=== PATIENT | female | born 1990 | race Caucasian/White ===

== ENCOUNTER 2016-06-30 03:45 | Emergency (ER) | payer MEDICARE, MEDICAID ==
[~2016-06-30] VITALS: Ht 172.7 cm; Wt 110.0 kg
[~2016-06-30 03:45] MED LIST: ANTIBIOTIC; BP MED; CARB200T4 PO; CEPH-376 PO; CLIN300C93 PO; CYCL-259 PO; DIVA125T2 PO; HYDR-3138 PO; HYDR-3240 PO; LEVE100020 PO; LEVE500T53 PO; LITH150C PO; LITH450T; LORA1TAB PO; LORA2TAB99 PO; LURA20TA PO; LURA40TA PO; MECL-76 PO; NAPR550T3 PO; ONDA4TAB13 SL; ONDA4TAB7 PO; PRENATALS; PROM25TA10 PO; QUET25TA5 PO; QUET300T6; RANI150T8; TRAM50TA2 PO
[2016-06-30] MEDS ORDERED: KETOROLAC 30 MG/1 ML IM ONE (05:00)
[2016-06-30] MEDS ORDERED: KETOROLAC 30 MG/1 ML ONE (05:01)
[2016-06-30 05:55] VITALS: BP 121/74
== END 2016-06-30 05:57 | disposition home or self-care (01) ==
LOC: ED 04:23
DX: S16.1XXA Strain of muscle, fascia and tendon at neck level, initial encounter (principal); J04.0 Acute laryngitis; B97.89 Other viral agents as the cause of diseases classified elsewhere; J45.909 Unspecified asthma, uncomplicated; X58.XXXA Exposure to other specified factors, initial encounter; Y93.89 Activity, other specified; Y92.89 Other specified places as the place of occurrence of the external cause; Y99.9 Unspecified external cause status
CPT/HCPCS: 96372; 99283; J1885

== ENCOUNTER 2016-07-15 17:35 | Emergency (ER) | payer MEDICARE, MEDICAID ==
[~2016-07-15] VITALS: Ht 172.7 cm; Wt 112.0 kg
[2016-07-15] MEDS ORDERED: SODIUM CHLORIDE 0.9% 1,000 ML IV ONE (17:43)
[2016-07-15] MEDS ORDERED: SODIUM CHLORIDE 0.9% 1,000ML IVBOLUS ONE (18:00)
[2016-07-15] MEDS ORDERED: LORazepam 1MG TABLET PO ONE (18:00)
[2016-07-15] MEDS ORDERED: LEVE100020 PO (18:01)
[2016-07-15] MEDS ORDERED: LORazepam 1MG TABLET ONE (18:03)
[2016-07-15 18:06] VITALS: BP 118/66
[2016-07-15 18:34] LABS: BLOOD UREA NITROGEN 12 mg/dL (7-18)
== END 2016-07-15 19:27 | disposition home or self-care (01) ==
LOC: ED 18:17
DX: G40.319 Generalized idiopathic epilepsy and epileptic syndromes, intractable, without status epilepticus (principal)
CPT/HCPCS: 36415; 80048; 80156; 82040; 82542; 85025; 96360; 96361; 99285; J7030

== ENCOUNTER 2016-09-07 12:03 | Emergency (ER) | payer MEDICARE, MEDICAID ==
[~2016-09-07] VITALS: Ht 172.7 cm; Wt 110.3 kg
[~2016-09-07 12:03] MED LIST changes: -NAPR550T3 PO; +NAPR550T30 PO
[2016-09-07 12:11] VITALS: BP 128/78
[2016-09-07 13:13] LABS: BLOOD UREA NITROGEN 10 mg/dL (7-18)
[2016-09-07] MEDS ORDERED: IBUPROFEN 200 MG TABLET PO ONE (14:00)
[2016-09-07 14:34] LABS: HCG UR OBC PASS
[2016-09-07] MEDS ORDERED: IBUPROFEN 200 MG TABLET ONE (14:40)
== END 2016-09-07 15:18 | disposition home or self-care (01) ==
LOC: ED 13:12
DX: M54.5 Low back pain (principal); M54.2 Cervicalgia; R11.0 Nausea; J45.909 Unspecified asthma, uncomplicated
CPT/HCPCS: 36415; 72050; 72072; 72110; 80048; 81001; 81025; 85025; 87086; 99285

== ENCOUNTER 2016-10-12 23:01 | Emergency (ER) | payer MEDICARE, MEDICAID ==
[~2016-10-12] VITALS: Ht 172.7 cm; Wt 111.9 kg
[~2016-10-12 23:01] MED LIST changes: +CLIN300C8 PO; -CLIN300C93 PO; -HYDR-3138 PO; +HYDR-3237 PO; +NAPR-850 PO; -NAPR550T30 PO
[2016-10-12 23:02] VITALS: BP 136/89
== END 2016-10-12 23:57 | disposition home or self-care (01) ==
LOC: ED 23:30
DX: L02.211 Cutaneous abscess of abdominal wall (principal); L73.9 Follicular disorder, unspecified
CPT/HCPCS: 99283

== ENCOUNTER 2016-11-05 20:46 | Emergency (ER) | payer MEDICARE, MEDICAID ==
[~2016-11-05] VITALS: Ht 172.7 cm; Wt 112.6 kg
[2016-11-05 21:02] VITALS: BP 146/84
== END 2016-11-05 22:27 | disposition home or self-care (01) ==
LOC: ED 22:15
DX: S63.501A Unspecified sprain of right wrist, initial encounter (principal); S46.911A Strain of unspecified muscle, fascia and tendon at shoulder and upper arm level, right arm, initial encounter; J45.909 Unspecified asthma, uncomplicated; G43.909 Migraine, unspecified, not intractable, without status migrainosus; F90.9 Attention-deficit hyperactivity disorder, unspecified type; X58.XXXA Exposure to other specified factors, initial encounter; Y93.54 Activity, bowling; Y92.89 Other specified places as the place of occurrence of the external cause; Y99.8 Other external cause status
CPT/HCPCS: 99284

== ENCOUNTER 2016-11-10 05:00 | Emergency (ER) | payer MEDICAID, MEDICARE ==
[2016-11-10 05:03] VITALS: BP 113/82
== END 2016-11-10 06:24 | disposition home or self-care (01) ==
LOC: ED 06:21
DX: J04.0 Acute laryngitis (principal); F31.9 Bipolar disorder, unspecified; F42.9 Obsessive-compulsive disorder, unspecified; F79 Unspecified intellectual disabilities; F90.9 Attention-deficit hyperactivity disorder, unspecified type; G40.909 Epilepsy, unspecified, not intractable, without status epilepticus; J45.909 Unspecified asthma, uncomplicated
CPT/HCPCS: 99281

== ENCOUNTER 2017-03-09 08:32 | Emergency (ER) | payer MEDICARE, MEDICAID ==
[~2017-03-09] VITALS: Ht 172.7 cm; Wt 113.8 kg
[2017-03-09 09:39] LABS: HCG UR SG 1.027 (1.003-1.030); MICROSCOPIC AUTO
[2017-03-09 09:41] LABS: CULTURE INDICATED? YES
[2017-03-09 09:51] LABS: BASOPHILS # (AUTO) 0.05 x10^3/uL (0-0.1); BASOPHILS % (AUTO) 1 % (0-1); EOSINOPHILS % (AUTO) 0 % (1-7); LYMPHOCYTES % (AUTO) 15 % (22-44); MD NO; MEAN CORPUSCULAR HEMOGLOBIN 27.4 pg (27.0-34.8); MEAN CORPUSCULAR HGB CONC 33.6 g/dL (32.4-35.8); MEAN CORPUSCULAR VOLUME 81.7 fL (80-100); MEAN PLATELET VOLUME 9.1 fL (7.4-10.4); MONOCYTES # (AUTO) 0.66 x10^3/uL (0.2-0.8); MONOCYTES % (AUTO) 6 % (2-9); NEUTROPHILS # (AUTO) 8.65 x10^3/uL (1.8-6.8); NEUTROPHILS % (AUTO) 78 % (42-75); PLATELET COUNT 240 x10^3/uL (130-400); RED CELL DISTRIBUTION WIDTH 14.6 % (9.6-15.2)
[2017-03-09 10:03] LABS: ALBUMIN 3.8 g/dL (3.4-5.0); ANION GAP 5 mmol/L (5-15); CALCIUM 8.5 mg/dL (8.5-10.1); CHLORIDE 104 mmol/L (98-107)
[2017-03-09 10:26] VITALS: BP 132/78
== END 2017-03-09 10:36 | disposition home or self-care (01) ==
LOC: ED 10:20
DX: N30.00 Acute cystitis without hematuria (principal); G40.909 Epilepsy, unspecified, not intractable, without status epilepticus; F17.210 Nicotine dependence, cigarettes, uncomplicated
CPT/HCPCS: 36415; 76830; 80048; 81001; 81025; 82040; 85025; 87086; 99285

== ENCOUNTER 2017-04-06 16:54 | Emergency (ER) | payer MEDICARE, MEDICAID ==
[~2017-04-06] VITALS: Ht 172.7 cm; Wt 114.7 kg
[2017-04-06 17:11] VITALS: BP 131/84
[2017-04-06] MEDS ORDERED: SODIUM CHLORIDE 0.9% 1,000ML IVBOLUS ONE (17:30)
[2017-04-06] MEDS ORDERED: SODIUM CHLORIDE FLUSH 10ML SYR IVF ONE (17:30)
[2017-04-06 18:01] LABS: BASOPHILS # (AUTO) 0.01 x10^3/uL (0-0.1); BASOPHILS % (AUTO) 0 % (0-1); EOSINOPHILS % (AUTO) 0 % (1-7); LYMPHOCYTES # (AUTO) 0.79 x10^3/uL (1-3.4); LYMPHOCYTES % (AUTO) 7 % (22-44); MD NO; MEAN CORPUSCULAR HEMOGLOBIN 27.1 pg (27.0-34.8); MEAN CORPUSCULAR HGB CONC 33.4 g/dL (32.4-35.8); MEAN PLATELET VOLUME 9.2 fL (7.4-10.4); MONOCYTES # (AUTO) 0.39 x10^3/uL (0.2-0.8); MONOCYTES % (AUTO) 3 % (2-9); NEUTROPHILS # (AUTO) 10.77 x10^3/uL (1.8-6.8); NEUTROPHILS % (AUTO) 90 % (42-75); PLATELET COUNT 288 x10^3/uL (130-400); RED BLOOD COUNT 5.15 x10^6/uL (3.82-5.3); RED CELL DISTRIBUTION WIDTH 15.1 % (9.6-15.2)
[2017-04-06 18:05] LABS: ALBUMIN 3.8 g/dL (3.4-5.0); ANION GAP 8 mmol/L (5-15); CALCIUM 8.5 mg/dL (8.5-10.1); CHLORIDE 107 mmol/L (98-107); CREATININE 0.84 mg/dL (0.55-1.02)
== END 2017-04-06 21:13 | disposition left against medical advice (07) ==
LOC: ED 18:00
DX: R50.9 Fever, unspecified (principal); R42 Dizziness and giddiness; R11.0 Nausea
CPT/HCPCS: 36415; 80048; 82040; 85025; 99284

== ENCOUNTER 2017-08-08 18:33 | Emergency (ER) | payer MEDICARE, MEDICAID ==
[~2017-08-08] VITALS: Ht 172.7 cm; Wt 120.1 kg
[~2017-08-08 18:33] MED LIST changes: +RANI150T23; -RANI150T8
[2017-08-08] MEDS ORDERED: DICYCLOMINE 10 MG/ML, 2ML IM ONE (19:30)
[2017-08-08] MEDS ORDERED: PROMETHAZINE 25 MG/ML, 1ML IM ONE (19:30)
[2017-08-08 19:37] LABS: BASOPHILS # (AUTO) 0.07 x10^3/uL (0-0.1); BASOPHILS % (AUTO) 1 % (0-1); EOSINOPHILS # (AUTO) 0.01 x10^3/uL (0-0.4); EOSINOPHILS % (AUTO) 0 % (1-7); LYMPHOCYTES # (AUTO) 2.16 x10^3/uL (1-3.4); LYMPHOCYTES % (AUTO) 22 % (22-44); MD NO; MEAN CORPUSCULAR HEMOGLOBIN 28.1 pg (27.0-34.8); MEAN CORPUSCULAR HGB CONC 33.9 g/dL (32.4-35.8); MONOCYTES # (AUTO) 0.97 x10^3/uL (0.2-0.8); MONOCYTES % (AUTO) 10 % (2-9); NEUTROPHILS # (AUTO) 6.77 x10^3/uL (1.8-6.8); NEUTROPHILS % (AUTO) 68 % (42-75); PLATELET COUNT 230 x10^3/uL (130-400); RED BLOOD COUNT 4.45 x10^6/uL (3.82-5.3); RED CELL DISTRIBUTION WIDTH 15.9 % (9.6-15.2)
[2017-08-08 19:44] LABS: ALANINE AMINOTRANSFERASE 29 U/L (12-78); ALBUMIN 3.5 g/dL (3.4-5.0); ANION GAP 4 mmol/L (5-15); CALCIUM 8.5 mg/dL (8.5-10.1); CHLORIDE 104 mmol/L (98-107); CREATININE 0.79 mg/dL (0.55-1.02)
[2017-08-08 19:49] LABS: ALKALINE PHOSPHATASE 77 U/L (45-117); BILIRUBIN,TOTAL 0.2 mg/dL (0.2-1.0)
[2017-08-08 20:10] LABS: MICROSCOPIC NOT IND
[2017-08-08 20:15] LABS: CULTURE INDICATED? NO
[2017-08-08] MEDS ORDERED: PROMETHAZINE 25 MG/ML, 1ML ONE (20:54)
[2017-08-08] MEDS ORDERED: DICYCLOMINE 10 MG/ML, 2ML ONE (20:54)
[2017-08-08 21:17] VITALS: BP 117/69
== END 2017-08-08 21:38 | disposition home or self-care (01) ==
LOC: ED 21:32
DX: R11.2 Nausea with vomiting, unspecified (principal); R10.84 Generalized abdominal pain; J45.909 Unspecified asthma, uncomplicated
CPT/HCPCS: 36415; 80053; 81003; 83690; 84703; 85025; 96372; 99284; J0500; J2550

== ENCOUNTER 2017-08-21 00:54 | Emergency (ER) | payer MEDICARE, MEDICAID ==
[~2017-08-21] VITALS: Ht 172.7 cm; Wt 120.0 kg
[2017-08-21] MEDS ORDERED: KETOROLAC 30 MG/1 ML IM ONE (02:30)
[2017-08-21 02:41] LABS: BASOPHILS # (AUTO) 0.08 x10^3/uL (0-0.1); BASOPHILS % (AUTO) 1 % (0-1); EOSINOPHILS % (AUTO) 0 % (1-7); LYMPHOCYTES # (AUTO) 2.85 x10^3/uL (1-3.4); LYMPHOCYTES % (AUTO) 34 % (22-44); MD NO; MEAN CORPUSCULAR HEMOGLOBIN 27.4 pg (27.0-34.8); MEAN CORPUSCULAR VOLUME 82.9 fL (80-100); MEAN PLATELET VOLUME 8.4 fL (7.4-10.4); MONOCYTES % (AUTO) 10 % (2-9); NEUTROPHILS # (AUTO) 4.59 x10^3/uL (1.8-6.8); NEUTROPHILS % (AUTO) 55 % (42-75); PLATELET COUNT 226 x10^3/uL (130-400); RED BLOOD COUNT 4.43 x10^6/uL (3.82-5.3); RED CELL DISTRIBUTION WIDTH 15.9 % (9.6-15.2)
[2017-08-21 02:54] LABS: ALBUMIN 3.4 g/dL (3.4-5.0); ANION GAP 6 mmol/L (5-15); CALCIUM 8.4 mg/dL (8.5-10.1); CHLORIDE 106 mmol/L (98-107); CREATININE 0.84 mg/dL (0.55-1.02)
[2017-08-21 02:58] LABS: TROPONIN I < 0.015 ng/mL (0.000-0.045)
[2017-08-21] MEDS ORDERED: KETOROLAC 30 MG/1 ML ONE (03:19)
[2017-08-21 03:42] VITALS: BP 133/63
== END 2017-08-21 03:45 | disposition home or self-care (01) ==
LOC: ED 03:39
DX: R07.89 Other chest pain (principal); F31.9 Bipolar disorder, unspecified; J45.909 Unspecified asthma, uncomplicated; I10 Essential (primary) hypertension; F90.9 Attention-deficit hyperactivity disorder, unspecified type
CPT/HCPCS: 36415; 71045; 80048; 82040; 84484; 85025; 85379; 93005; 96372; 99285; J1885

== ENCOUNTER 2017-08-22 00:09 | Emergency (ER) | payer MEDICARE, MEDICAID ==
[~2017-08-22] VITALS: Ht 172.7 cm; Wt 120.0 kg
[2017-08-22 00:13] VITALS: BP 160/93
== END 2017-08-22 00:28 | disposition home or self-care (01) ==
LOC: ED 00:20
DX: I10 Essential (primary) hypertension (principal); F90.9 Attention-deficit hyperactivity disorder, unspecified type; G40.909 Epilepsy, unspecified, not intractable, without status epilepticus; F31.9 Bipolar disorder, unspecified; Z76.0 Encounter for issue of repeat prescription
CPT/HCPCS: 99283

== ENCOUNTER 2017-09-15 18:13 | Emergency (ER) | payer MEDICARE, MEDICAID ==
[~2017-09-15] VITALS: Ht 172.7 cm; Wt 121.5 kg
[2017-09-15 18:22] VITALS: BP 121/72
== END 2017-09-15 18:55 | disposition home or self-care (01) ==
LOC: ED 18:47
DX: B34.9 Viral infection, unspecified (principal); G40.909 Epilepsy, unspecified, not intractable, without status epilepticus; I10 Essential (primary) hypertension; J45.909 Unspecified asthma, uncomplicated
CPT/HCPCS: 93005; 99283

== ENCOUNTER 2017-12-02 14:30 | Emergency (ER) | payer MEDICARE, MEDICAID ==
[~2017-12-02] VITALS: Ht 167.6 cm; Wt 126.0 kg
[2017-12-02 14:36] VITALS: BP 127/87
[2017-12-02] MEDS ORDERED: DIPH,PERTUSS(ACELL),TET VAC/PF 0.5 ML IM-VACC ONE ×2 (15:00→16:21)
[2017-12-02] MEDS ORDERED: BACITRACIN ZINC OINT 500U/GM, 0.9 GM ONE (15:19)
[2017-12-02] MEDS ORDERED: ARIP400S3 IM (16:18)
[2017-12-02] MEDS ORDERED: BUPR100T7 PO (16:18)
== END 2017-12-02 16:30 | disposition home or self-care (01) ==
LOC: ED 16:00
DX: S61.204A Unspecified open wound of right ring finger without damage to nail, initial encounter (principal); F31.9 Bipolar disorder, unspecified; G40.909 Epilepsy, unspecified, not intractable, without status epilepticus; Z90.89 Acquired absence of other organs; Z88.2 Allergy status to sulfonamides; W21.31XA Struck by shoe cleats, initial encounter; Y92.322 Soccer field as the place of occurrence of the external cause; Y93.89 Activity, other specified; Y99.8 Other external cause status
CPT/HCPCS: 90471; 90715; 99284

== ENCOUNTER 2017-12-15 13:34 | Emergency (ER) | payer MEDICARE, MEDICAID ==
[~2017-12-15] VITALS: Ht 172.7 cm; Wt 122.8 kg
[~2017-12-15 13:34] MED LIST changes: +ARIP400S3 IM; +BUPR100T7 PO
[2017-12-15 13:52] VITALS: BP 129/78
[2017-12-15] MEDS ORDERED: LURA20TA PO (14:16)
[2017-12-15] MEDS ORDERED: IBUPROFEN 200 MG TABLET PO ONE (14:30)
[2017-12-15] MEDS ORDERED: IBUPROFEN 200 MG TABLET ONE (14:46)
== END 2017-12-15 15:38 | disposition home or self-care (01) ==
LOC: ED 15:30
DX: S39.012A Strain of muscle, fascia and tendon of lower back, initial encounter (principal); S70.12XA Contusion of left thigh, initial encounter; S80.02XA Contusion of left knee, initial encounter; X58.XXXA Exposure to other specified factors, initial encounter; Y93.89 Activity, other specified; Y99.8 Other external cause status; Y92.410 Unspecified street and highway as the place of occurrence of the external cause
CPT/HCPCS: 72110; 99284

== ENCOUNTER 2018-03-16 12:08 | Emergency (ER) | payer MEDICARE, MEDICAID ==
[~2018-03-16] VITALS: Ht 172.7 cm; Wt 125.0 kg
--- NOTE | 2018-03-16 12:43 | NUR ---
Pt to rm 16 from [facility]
--- NOTE | 2018-03-16 13:10 | NUR ---
assumede care of pt. lab at bedside to draw. pt advised that urine sample needed. pt will attempt to give urine sample
[2018-03-16 13:22] LABS: BASOPHILS # (AUTO) 0.02 x10^3/uL (0-0.1); BASOPHILS % (AUTO) 0 % (0-1); EOSINOPHILS % (AUTO) 0 % (1-7); LYMPHOCYTES # (AUTO) 1.85 x10^3/uL (1-3.4); LYMPHOCYTES % (AUTO) 18 % (22-44); MD NO; MEAN CORPUSCULAR HEMOGLOBIN 27.7 pg (27.0-34.8); MEAN CORPUSCULAR HGB CONC 33.2 g/dL (32.4-35.8); MEAN CORPUSCULAR VOLUME 83.4 fL (80-100); MEAN PLATELET VOLUME 8.9 fL (7.4-10.4); MONOCYTES % (AUTO) 8 % (2-9); NEUTROPHILS # (AUTO) 7.65 x10^3/uL (1.8-6.8); NEUTROPHILS % (AUTO) 74 % (42-75); PLATELET COUNT 251 x10^3/uL (130-400); RED BLOOD COUNT 4.76 x10^6/uL (3.82-5.3); RED CELL DISTRIBUTION WIDTH 15.2 % (9.6-15.2)
[2018-03-16] MEDS ORDERED: HYDROcodone/APAP 5/325 TABLET PO ONE (13:30)
[2018-03-16] MEDS ORDERED: ONDANSETRON ODT 4 MG PO ONE (13:30)
[2018-03-16 13:33] LABS: ALBUMIN 3.6 g/dL (3.4-5.0); ANION GAP 5 mmol/L (5-15); CALCIUM 8.9 mg/dL (8.5-10.1); CHLORIDE 106 mmol/L (98-107); CREATININE 0.82 mg/dL (0.55-1.02)
--- NOTE | 2018-03-16 13:50 | NUR ---
urine sample collected and sent. pt c/o low abd pain x2 days that feels like a burning and has painful urination as well. pt denies hematuria, no bowel c/o. denies urinary frequency or urgency. pt sitting up on [employer] calmly playing [employer] game on cell phone. pt to recieve pain meds. pt advised not to drive after meds, pt verbalized understanding
[2018-03-16] MEDS ORDERED: HYDROcodone/APAP 5/325 TABLET ONE (13:56)
--- NOTE | 2018-03-16 14:05 | NUR ---
pt medicated per order. pt declines zofra at this time. updated on POC. resting in position of comfort playing game on cell phone, friends at bedside
[2018-03-16 14:12] VITALS: BP 107/70
[2018-03-16 14:23] LABS: CULTURE INDICATED? YES; MICROSCOPIC INDICATED
--- NOTE | 2018-03-16 15:05 | NUR ---
TASK RN: DC EDUCATION PROVIDED, PT DEMONSTRATES UNDERSTANDING. PT AMBULATED STEADILY TO DC WITH RN AND FAMILY
--- NOTE | 2018-03-16 15:17 | NUR ---
this pt was D/C by another RN
== END 2018-03-16 15:07 | disposition home or self-care (01) ==
LOC: ED 13:59
DX: R10.30 Lower abdominal pain, unspecified (principal); R30.0 Dysuria; N30.00 Acute cystitis without hematuria; I10 Essential (primary) hypertension; F31.9 Bipolar disorder, unspecified; G89.29 Other chronic pain; G40.909 Epilepsy, unspecified, not intractable, without status epilepticus; J45.909 Unspecified asthma, uncomplicated
CPT/HCPCS: 36415; 80048; 81001; 82040; 84703; 85025; 87077; 87086; 87186; 99283

== ENCOUNTER 2018-12-31 13:13 | Emergency (ER) | payer MEDICARE, MEDICAID ==
[~2018-12-31] VITALS: Ht 172.7 cm; Wt 123.7 kg
[~2018-12-31 13:13] MED LIST changes: -QUET300T6; +QUET300T7; +RANI-467; -RANI150T23
--- NOTE | 2018-12-31 13:36 | NUR ---
THIS IS A 28Y F THAT COMES IN FROM HOME WITH INTERMITTENT CP, PAIN WORSENS WITH DEEP BREATHING. PT STATES " MY RIGHT LUNG HURTS WHEN I TAKE A DEEP BREATH IT FEELS KIND OF LIKE I'M BEING STABBED." PT DENIES RECENT TRAUMA OR ILLNESS. PT REPORTS HX ANXIETY BUT STATES IT IS MANAGED WELL WITH MEDICATION. PT CONNECTED TO ALL MONITORING CALL LIGHT WITHIN REACH. AT BEDSIDE
--- NOTE | 2018-12-31 13:37 | NUR ---
PT STATES SHE FEELS LIKE THE ROOM IS SPINNING AND SHE IS DIZZY WHEN SHE WALKS. UPDATED. AWAITING FURTHER ORDERS
[2018-12-31] MEDS ORDERED: KETOROLAC 30 MG/1 ML ONE (13:50)
[2018-12-31 14:00] LABS: BASOPHILS # (AUTO) 0.09 x10^3/uL (0-0.1); BASOPHILS % (AUTO) 1 % (0-1); EOSINOPHILS # (AUTO) 0.08 x10^3/uL (0-0.4); EOSINOPHILS % (AUTO) 1 % (1-7); LYMPHOCYTES # (AUTO) 2.37 x10^3/uL (1-3.4); LYMPHOCYTES % (AUTO) 23 % (22-44); MD NO; MEAN CORPUSCULAR HEMOGLOBIN 27.9 pg (27.0-34.8); MEAN CORPUSCULAR HGB CONC 32.7 g/dL (32.4-35.8); MEAN CORPUSCULAR VOLUME 85.5 fL (80-100); MEAN PLATELET VOLUME 8.9 fL (7.4-10.4); MONOCYTES # (AUTO) 0.87 x10^3/uL (0.2-0.8); MONOCYTES % (AUTO) 8 % (2-9); NEUTROPHILS # (AUTO) 6.97 x10^3/uL (1.8-6.8); NEUTROPHILS % (AUTO) 67 % (42-75); PLATELET COUNT 280 x10^3/uL (130-400); RED CELL DISTRIBUTION WIDTH 14.6 % (9.6-15.2)
[2018-12-31] MEDS ORDERED: KETOROLAC 30 MG/1 ML IM ONE (14:00)
[2018-12-31 14:11] LABS: ALBUMIN 3.8 g/dL (3.4-5.0); ANION GAP 4 mmol/L (5-15); CALCIUM 9.2 mg/dL (8.5-10.1); CHLORIDE 107 mmol/L (98-107); CREATININE 0.85 mg/dL (0.55-1.02)
[2018-12-31] MEDS ORDERED: MECLIZINE HCL 25 MG TABLET PO ONE (14:30)
--- NOTE | 2018-12-31 14:30 | NUR ---
PT UP TO RESTROOM NO ASSISTANCE REQUIRED, STEADY GAIT
[2018-12-31] MEDS ORDERED: MECLIZINE CHEWABLE 25 MG TAB ONE (14:32)
--- NOTE | 2018-12-31 14:53 | NUR ---
ALL RESULTS BACK AT THIS TIME. CHART UP FOR RECHECK.
--- NOTE | 2018-12-31 15:19 | NUR ---
MD TO BEDSIDE TO UPDATE PT ON POC. PT TO BE DCd HOME
[2018-12-31 15:36] VITALS: BP 117/61
== END 2018-12-31 15:39 | disposition home or self-care (01) ==
LOC: ED 14:15
DX: H81.12 Benign paroxysmal vertigo, left ear (principal); J00 Acute nasopharyngitis [common cold]; R09.1 Pleurisy; I10 Essential (primary) hypertension; G40.89 Other seizures; F31.9 Bipolar disorder, unspecified; F79 Unspecified intellectual disabilities; E28.2 Polycystic ovarian syndrome; F90.9 Attention-deficit hyperactivity disorder, unspecified type; Z90.89 Acquired absence of other organs
CPT/HCPCS: 36415; 71045; 80048; 82040; 85025; 85379; 93005; 96372; 99284; J1885

== ENCOUNTER 2019-01-24 09:26 | Emergency (ER) | payer MEDICARE, MEDICAID ==
[~2019-01-24] VITALS: Ht 172.7 cm; Wt 121.3 kg
[2019-01-24] MEDS ORDERED: HYDROcodone/APAP 5/325 TABLET PO ONE (10:00)
[2019-01-24] MEDS ORDERED: PHENAZOPYRIDINE 200 MG TABLET PO ONE (10:00)
[2019-01-24] MEDS ORDERED: ONDANSETRON ODT 4 MG PO ONE (10:00)
[2019-01-24] MEDS ORDERED: PHENAZOPYRIDINE 200 MG TABLET ONE (10:02)
[2019-01-24] MEDS ORDERED: ONDANSETRON ODT 4 MG ONE (10:02)
[2019-01-24] MEDS ORDERED: HYDROcodone/APAP 5/325 TABLET ONE (10:03)
[2019-01-24 10:19] LABS: MICROSCOPIC INDICATED
[2019-01-24 10:24] LABS: BASOPHILS # (AUTO) 0.18 x10^3/uL (0-0.1); BASOPHILS % (AUTO) 2 % (0-1); EOSINOPHILS # (AUTO) 0.03 x10^3/uL (0-0.4); EOSINOPHILS % (AUTO) 0 % (1-7); LYMPHOCYTES # (AUTO) 2.03 x10^3/uL (1-3.4); LYMPHOCYTES % (AUTO) 24 % (22-44); MD NO; MEAN CORPUSCULAR HEMOGLOBIN 27.8 pg (27.0-34.8); MEAN CORPUSCULAR HGB CONC 32.6 g/dL (32.4-35.8); MEAN CORPUSCULAR VOLUME 85.4 fL (80-100); MONOCYTES # (AUTO) 0.75 x10^3/uL (0.2-0.8); MONOCYTES % (AUTO) 9 % (2-9); NEUTROPHILS # (AUTO) 5.64 x10^3/uL (1.8-6.8); NEUTROPHILS % (AUTO) 65 % (42-75); PLATELET COUNT 255 x10^3/uL (130-400); RED BLOOD COUNT 4.64 x10^6/uL (3.82-5.3); RED CELL DISTRIBUTION WIDTH 15.1 % (9.6-15.2)
[2019-01-24 10:35] LABS: ALBUMIN 3.6 g/dL (3.4-5.0); ANION GAP 4 mmol/L (5-15); CALCIUM 8.9 mg/dL (8.5-10.1); CHLORIDE 108 mmol/L (98-107); CREATININE 0.89 mg/dL (0.55-1.02)
[2019-01-24 10:50] LABS: CULTURE INDICATED? YES
[2019-01-24 11:09] VITALS: BP 115/73
--- NOTE | 2019-01-24 11:10 | NUR ---
TALKING WITH PT ABOUT LAB RESULTS AND POC
[2019-01-24] MEDS ORDERED: CEFTRIAXONE 1,000 MG ONE (11:18)
[2019-01-24] MEDS ORDERED: LIDOCAINE-MPF 1%, 2ML ONE (11:18)
[2019-01-24] MEDS ORDERED: CEFTRIAXONE 1,000 MG IM ONE (11:30)
== END 2019-01-24 11:44 | disposition home or self-care (01) ==
LOC: ED 09:51
DX: N30.00 Acute cystitis without hematuria (principal)
CPT/HCPCS: 36415; 80048; 81001; 82040; 84703; 85025; 87086; 96372; 99284; J0696; Q0162

== ENCOUNTER 2019-01-26 10:22 | Emergency (ER) | payer MEDICARE, MEDICAID ==
[~2019-01-26] VITALS: Ht 172.7 cm; Wt 122.0 kg
--- NOTE | 2019-01-26 11:11 | NUR ---
oral temp rechecked :98.3f patient up to restroom to provide clean catch urine sample
[2019-01-26] MEDS ORDERED: LEVE500T8 PO (11:45)
[2019-01-26] MEDS ORDERED: CEFD300C37 PO (11:45)
[2019-01-26 12:24] VITALS: BP 111/67
--- NOTE | 2019-01-26 12:24 | NUR ---
BREAK RN NOTE: Pt sitting up in bed using cell phone. NAD noted at this time. Friend at bedside. VSS. Side rail up. Call light in reach. Awaiting UA results.
[2019-01-26 12:32] LABS: MICROSCOPIC INDICATED
[2019-01-26 12:59] LABS: CULTURE INDICATED? YES
== END 2019-01-26 12:56 | disposition home or self-care (01) ==
LOC: ED 12:55
DX: N30.00 Acute cystitis without hematuria (principal); I10 Essential (primary) hypertension; J45.909 Unspecified asthma, uncomplicated; Z90.89 Acquired absence of other organs
CPT/HCPCS: 81001; 87086; 99283

== ENCOUNTER 2019-01-28 17:54 | Emergency (ER) | payer MEDICAID, MEDICARE, OTHER ==
[~2019-01-28] VITALS: Ht 172.7 cm; Wt 122.6 kg
[~2019-01-28 17:54] MED LIST changes: +CEFD300C37 PO; +LEVE500T8 PO
--- NOTE | 2019-01-28 18:07 | NUR ---
NO ANSWER X 1 TO TRIAGE.
--- NOTE | 2019-01-28 18:10 | NUR ---
NO ANSWER TO TRIAGE X 2.
[2019-01-28 18:21] VITALS: BP 109/71
[2019-01-28] MEDS ORDERED: IBUPROFEN 800 MG TABLET PO STA (19:42)
[2019-01-28] MEDS ORDERED: IBUPROFEN 200 MG TABLET ONE (19:53)
== END 2019-01-28 20:00 | disposition home or self-care (01) ==
LOC: ED 19:54
DX: S90.32XA Contusion of left foot, initial encounter (principal); W20.8XXA Other cause of strike by thrown, projected or falling object, initial encounter; Y93.89 Activity, other specified; Y92.69 Other specified industrial and construction area as the place of occurrence of the external cause; Y99.8 Other external cause status
CPT/HCPCS: 99283

== ENCOUNTER 2019-02-02 12:02 | Emergency (ER) | payer MEDICARE, MEDICAID ==
[~2019-02-02] VITALS: Ht 172.7 cm; Wt 122.9 kg
[2019-02-02 12:43] VITALS: BP 127/64
[2019-02-02 13:22] LABS: BASOPHILS # (AUTO) 0.11 x10^3/uL (0-0.1); BASOPHILS % (AUTO) 1 % (0-1); EOSINOPHILS # (AUTO) 0.12 x10^3/uL (0-0.4); EOSINOPHILS % (AUTO) 1 % (1-7); LYMPHOCYTES # (AUTO) 2.33 x10^3/uL (1-3.4); LYMPHOCYTES % (AUTO) 23 % (22-44); MD NO; MEAN CORPUSCULAR HEMOGLOBIN 27.9 pg (27.0-34.8); MEAN CORPUSCULAR HGB CONC 32.9 g/dL (32.4-35.8); MEAN CORPUSCULAR VOLUME 84.8 fL (80-100); MEAN PLATELET VOLUME 9.2 fL (7.4-10.4); MONOCYTES # (AUTO) 0.72 x10^3/uL (0.2-0.8); MONOCYTES % (AUTO) 7 % (2-9); NEUTROPHILS # (AUTO) 6.96 x10^3/uL (1.8-6.8); NEUTROPHILS % (AUTO) 68 % (42-75); PLATELET COUNT 272 x10^3/uL (130-400); RED BLOOD COUNT 4.82 x10^6/uL (3.82-5.3); RED CELL DISTRIBUTION WIDTH 15.2 % (9.6-15.2)
--- NOTE | 2019-02-02 13:23 | NUR ---
Pt to rm 11 from [facility]
[2019-02-02 13:32] LABS: ALBUMIN 3.8 g/dL (3.4-5.0); ANION GAP 5 mmol/L (5-15); CALCIUM 8.9 mg/dL (8.5-10.1); CHLORIDE 106 mmol/L (98-107)
[2019-02-02 13:38] LABS: CREATININE 1.03 mg/dL (0.55-1.02)
--- NOTE | 2019-02-02 13:46 | NUR ---
Pt c/o diarrhea with blood for 1 week with 10/10 generalized abdominal pain. Pt sitting on gurney connected to NIBP cuff and continous pulse ox monitor. Pt denies recent antibiotic use within last two months. Pt denies pain with urination, burning, or flank pain. Pt denies n/v. NADN. Spouse at bedside. Bedside commode in room and UA cup provided with clean catch urine sample instructions provided. Pt stated verbal understanding of clean catch. Call light within reach. No needs expressed.
--- NOTE | 2019-02-02 13:51 | NUR ---
Pt aware of need of UA and states, "I geraldo ltry in 10 to 15 minutes." Pt refused straight cath.
--- NOTE | 2019-02-02 15:16 | NUR ---
Pt left ED room prior to getting d/c paperwork or education. Pt left with all personal belongings.
== END 2019-02-02 15:19 | disposition home or self-care (01) ==
LOC: ED 15:10
DX: R19.7 Diarrhea, unspecified (principal); R10.33 Periumbilical pain; I10 Essential (primary) hypertension; G43.909 Migraine, unspecified, not intractable, without status migrainosus
CPT/HCPCS: 36415; 74021; 80048; 82040; 84703; 85025; 99284

== ENCOUNTER 2019-02-12 13:27 | Emergency (ER) | payer MEDICARE, MEDICAID ==
[~2019-02-12] VITALS: Ht 172.7 cm; Wt 124.0 kg
[2019-02-12 14:37] VITALS: BP 113/75
[2019-02-12 15:19] LABS: BASOPHILS # (AUTO) 0.09 x10^3/uL (0-0.1); BASOPHILS % (AUTO) 1 % (0-1); EOSINOPHILS # (AUTO) 0.11 x10^3/uL (0-0.4); EOSINOPHILS % (AUTO) 1 % (1-7); LYMPHOCYTES % (AUTO) 20 % (22-44); MD NO; MEAN CORPUSCULAR HEMOGLOBIN 27.9 pg (27.0-34.8); MEAN CORPUSCULAR HGB CONC 32.6 g/dL (32.4-35.8); MEAN CORPUSCULAR VOLUME 85.6 fL (80-100); MEAN PLATELET VOLUME 9.1 fL (7.4-10.4); MONOCYTES % (AUTO) 9 % (2-9); NEUTROPHILS # (AUTO) 7.08 x10^3/uL (1.8-6.8); NEUTROPHILS % (AUTO) 69 % (42-75); PLATELET COUNT 288 x10^3/uL (130-400); RED BLOOD COUNT 4.94 x10^6/uL (3.82-5.3); RED CELL DISTRIBUTION WIDTH 15.3 % (9.6-15.2)
--- NOTE | 2019-02-12 15:22 | NUR ---
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
[2019-02-12 15:31] LABS: ALANINE AMINOTRANSFERASE 45 U/L (12-78); ALBUMIN 3.7 g/dL (3.4-5.0); ANION GAP 4 mmol/L (5-15); CALCIUM 9.3 mg/dL (8.5-10.1); CHLORIDE 105 mmol/L (98-107); CREATININE 1.01 mg/dL (0.55-1.02)
[2019-02-12 15:36] LABS: ALKALINE PHOSPHATASE 112 U/L (45-117); BILIRUBIN,TOTAL 0.4 mg/dL (0.2-1.0); TOTAL PROTEIN 8.1 g/dL (6.4-8.2)
[2019-02-12] MEDS ORDERED: ONDANSETRON ODT 4 MG PO ONE (16:00)
[2019-02-12] MEDS ORDERED: MAALOX/HYOSCYAMINE/LIDOCAINE 45 ML BTL PO ONE (16:00)
[2019-02-12] MEDS ORDERED: MAALOX/HYOSCYAMINE/LIDOCAINE 45 ML BTL ONE (16:14)
[2019-02-12] MEDS ORDERED: ONDANSETRON ODT 4 MG ONE (16:14)
[2019-02-12 16:32] LABS: CULTURE INDICATED? YES; MICROSCOPIC INDICATED
== END 2019-02-12 17:32 | disposition home or self-care (01) ==
LOC: ED 15:49
DX: E86.0 Dehydration (principal); B34.9 Viral infection, unspecified; I10 Essential (primary) hypertension
CPT/HCPCS: 36415; 80053; 81001; 83690; 84703; 85025; 87081; 87086; 87880; 93005; 99284; Q0162